=== PATIENT | female | born 1985 | race Caucasian/White ===

== ENCOUNTER 2022-12-26 17:11 | Emergency (ER) | payer OTHER ==
[2022-12-26] MEDS ORDERED: Iopamidol 612 MG/ML 100 ML Bottle IVPUSH ONE (17:31)
[2022-12-26] MEDS ORDERED: Ertapenem 1 GM Vial IVPUSH ONE (18:31)
[2022-12-26] MEDS ORDERED: Acetaminophen 500 MG Tab PO ONE (18:45)
== END 2022-12-26 19:31 | disposition short-term general hospital (02) ==
LOC: VM.ED 17:11
DX: K37 Unspecified appendicitis (principal)
CPT/HCPCS: 74177; 96374; 99284; A9270; J1335; Q9967